=== PATIENT | male | born 1955 | race Caucasian/White ===

== ENCOUNTER → 2018-06-12 | Outpatient (REF) | payer MEDICARE ==
[2018-06-12 12:46] LABS: HEMATOCRIT 42.8 % (42.0-52.0); HEMOGLOBIN 14.8 g/dl (13.5-17.5); MEAN CORPUSCULAR HEMOGLOBIN 29.8 pg (27.0-33.0); MEAN CORPUSCULAR HGB CONC 34.6 g/dl (32.0-36.5); MEAN CORPUSCULAR VOLUME 86.3 fl (80.0-96.0); PLATELET COUNT, AUTOMATED 263 10^3/uL (150-450); RED BLOOD COUNT 4.96 10^6/uL (4.30-6.10); WHITE BLOOD COUNT 5.1 10^3/uL (4.0-10.0)
[2018-06-12 13:09] LABS: HEMOGLOBIN A1c 5.5 %
[2018-06-12 13:19] LABS: ALT/SGPT 32 U/L (12-78); BILIRUBIN,TOTAL 1.2 MG/DL (0.2-1.0); BLOOD UREA NITROGEN 14 MG/DL (7-18); CALCIUM LEVEL 8.3 MG/DL (8.8-10.2); CARBON DIOXIDE LEVEL 30 MEQ/L (21-32); CHLORIDE LEVEL 104 MEQ/L (98-107); CHOLESTEROL LEVEL 163 MG/DL (<200); CHOLESTEROL RISK RATIO 5.093 (<5); CREATININE FOR GFR 0.96 MG/DL (0.70-1.30); GLOMERULAR FILTRATION RATE > 60.0 (>49); GLUCOSE, FASTING 82 MG/DL (70-100); HDL CHOLESTEROL 32 MG/DL (>40); LDL CHOLESTEROL 110 MG/DL (<100); NON-HDL-C 131 MG/DL; POTASSIUM SERUM 4.3 MEQ/L (3.5-5.1); SODIUM LEVEL 141 MEQ/L (136-145); TOTAL 25(OH) VITAMIN D 22.6 NG/ML (30.0-100.0); TOTAL PROTEIN 6.6 GM/DL (6.4-8.2); TRIGLYCERIDES LEVEL 103 MG/DL (<150)
== END ==
LOC: M SFHCPLAZ 09:26
PROVIDERS: ATTEND Family Medicine
DX: R53.82 Chronic fatigue, unspecified (principal); Z13.1 Encounter for screening for diabetes mellitus; Z13.220 Encounter for screening for lipoid disorders; G47.33 Obstructive sleep apnea (adult) (pediatric)

== ENCOUNTER 2019-03-19 14:48 | Emergency (ER) | payer MEDICARE, OTHER ==
[~2019-03-19] VITALS: Ht 177.8 cm; Wt 88.1 kg
[2019-03-19] MEDS ORDERED: PRED10TA2 (14:57)
[2019-03-19] MEDS ORDERED: DOXY100C37 (14:57)
[2019-03-19] MEDS ORDERED: NS 1,000 ML IV ONE (16:30)
--- NOTE | 2019-03-19 17:09 | REP ---
Two-view chest: 03/19/2019. Indication: Dizziness. Comparison: None. Findings: There is no focal airspace consolidation. No pleural effusion or pneumothorax is present. The cardiomediastinal silhouette is unremarkable. There is mild elevation of the right hemidiaphragm. Poor inspiratory result is noted. Impression: No acute cardiopulmonary process. Electronically Signed by Jerrell Rodarte DO 03/19/2019 05:01 P
[2019-03-19 17:14] LABS: BASO % 0.4 % (0.0-1.0); EOS # 0.3 10^3/uL (0.0-0.5); HEMATOCRIT 48.4 % (42.0-52.0); HEMOGLOBIN 16.4 g/dl (13.5-17.5); LYMPH # 1.3 10^3/uL (1.5-5.0); LYMPH % 13.7 % (24.0-44.0); MEAN CORPUSCULAR HEMOGLOBIN 29.4 pg (27.0-33.0); MEAN CORPUSCULAR HGB CONC 33.9 g/dl (32.0-36.5); MEAN CORPUSCULAR VOLUME 86.9 fl (80.0-96.0); MONO # 0.9 10^3/uL (0.0-0.8); MONO % 9.3 % (0.0-5.0); NEUTROPHILS # 6.8 10^3/uL (1.5-8.5); NEUTROPHILS % 73.2 % (36.0-66.0); PLATELET COUNT, AUTOMATED 317 10^3/uL (150-450); RED BLOOD COUNT 5.57 10^6/uL (4.30-6.10); WHITE BLOOD COUNT 9.4 10^3/uL (4.0-10.0)
[2019-03-19 17:31] LABS: INFLUENZA A AMPLIFICATION NEGATIVE (NEGATIVE); INFLUENZA B AMPLIFICATION NEGATIVE (NEGATIVE)
[2019-03-19 17:33] LABS: ALBUMIN 3.7 GM/DL (3.2-5.2); ALT/SGPT 121 U/L (12-78); BILIRUBIN,TOTAL 1.4 MG/DL (0.2-1.0); BLOOD UREA NITROGEN 20 MG/DL (7-18); CALCIUM LEVEL 8.8 MG/DL (8.8-10.2); CARBON DIOXIDE LEVEL 26 MEQ/L (21-32); CHLORIDE LEVEL 105 MEQ/L (98-107); CK-MB VALUE MASS 1.6 NG/ML (<3.6); CPK CREATINE PHOSPHOKINASE 60 U/L (39-308); CREATININE FOR GFR 1.26 MG/DL (0.70-1.30); GLOMERULAR FILTRATION RATE > 60.0 (>49); GLUCOSE, FASTING 100 MG/DL (70-100); MB/CK RELATIVE INDEX 2.67 (< OR =4); SODIUM LEVEL 139 MEQ/L (136-145); TROPONIN I < 0.02 NG/ML (< 0.10)
[2019-03-19 18:43] LABS: MONO SCRN NEGATIVE (NEGATIVE)
--- NOTE | 2019-03-19 19:26 | REPVR ---
PROCEDURE INFORMATION: Exam: US Abdomen Limited, Right Upper Quadrant Exam date and time: 03/19/2019 7:13 PM Age: 63 years old Clinical history: Abnormal findings; Abnormal lab test; Other: Elevated bilirubin; Additional info: Elevated bilirubin levels, general malaise TECHNIQUE: Imaging protocol: Real-time ultrasound of the abdomen with image documentation. Examination was focused on the right upper quadrant. COMPARISON: No relevant prior studies available. FINDINGS: Liver: Diffuse increased echogenicity throughout the liver, consistent with fatty infiltration. No focal hepatic lesion or intrahepatic duct dilatation. Gallbladder: The gallbladder is contracted, but otherwise unremarkable. No gallstones or pericholecystic fluid are identified. Common bile duct: The common bile duct has a normal caliber, measuring 3.7 mm. Pancreas: The pancreas is inadequately visualized due to overlying bowel gas. Right kidney: There is a cyst, measuring 9 mm, within the right kidney upper pole. No right renal stone or hydronephrosis is identified. IMPRESSION: 1. Contracted gallbladder. 2. Fatty infiltration of the liver. 3. Inadequate visualization of the pancreas. COMMENT: Consistent with the [employer]'s Incidental Findings Committee Report (J Am Peterson Radiol 2010): Unless the patient's specific circumstances suggest otherwise, any liver lesion 0.5 cm or less, any cystic kidney lesion less than 1.0 cm, and/or any adrenal lesion 1.0 cm or less not otherwise characterized in this report as possessing suspicious or indeterminate imaging features is/are highly likely to be benign and do not require follow-up imaging or biopsy. Electronically signed by: Bill Wolfe On 03/19/2019 19:26:04 PM
--- NOTE | 2019-03-19 20:21 | ECGEPIP ---
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
[2019-03-19 20:51] VITALS: BP 155/88
[2019-03-22 10:47] LABS: HEPATITIS B SURFACE ANTIGEN NEGATIVE (NEGATIVE)
[2019-03-22 11:15] LABS: HEPATITIS B CORE ANTIBODY IGM NEGATIVE (NEGATIVE); HEPATITIS C VIRUS ABY INDEX 0.1 INDEX (<0.8)
[2019-03-22 11:17] LABS: HEPATITIS A ANTIBODY IGM NEGATIVE (NEGATIVE)
[2019-03-23 00:06] LABS: Lyme Disease IgG/IgM Antibodie <0.91 ISR (0.00-0.90); Lyme Disease IgM Ab Quantitati <0.80 index (0.00-0.79)
== END 2019-03-19 21:17 | disposition home or self-care (01) ==
LOC: M ED 14:48
DX: E86.0 Dehydration (principal); R74.0 Nonspecific elevation of levels of transaminase and lactic acid dehydrogenase [LDH]; R79.89 Other specified abnormal findings of blood chemistry; Z88.0 Allergy status to penicillin

== ENCOUNTER → 2019-03-25 | Outpatient (REF) | payer OTHER ==
[~2019-03-25] MED LIST: DOXY100C37; PRED10TA2
== END ==
LOC: M LAB REF 12:50
PROVIDERS: ATTEND Physician Assistant
DX: R19.7 Diarrhea, unspecified (principal)

== ENCOUNTER → 2019-04-05 | Outpatient (CLI) | payer OTHER ==
[2019-04-05 13:10] LABS: ALBUMIN 3.8 GM/DL (3.2-5.2); ALT/SGPT 35 U/L (12-78); BILIRUBIN,TOTAL 1.2 MG/DL (0.2-1.0); BLOOD UREA NITROGEN 13 MG/DL (7-18); CALCIUM LEVEL 8.7 MG/DL (8.8-10.2); CARBON DIOXIDE LEVEL 28 MEQ/L (21-32); CHLORIDE LEVEL 107 MEQ/L (98-107); CREATININE FOR GFR 1.07 MG/DL (0.70-1.30); GLOMERULAR FILTRATION RATE > 60.0 (>49); GLUCOSE, FASTING 90 MG/DL (70-100); POTASSIUM SERUM 4.3 MEQ/L (3.5-5.1); SODIUM LEVEL 142 MEQ/L (136-145); TOTAL PROTEIN 6.8 GM/DL (6.4-8.2)
== END ==
LOC: M LAB 11:32
PROVIDERS: ATTEND Nurse Practitioner Family
DX: R94.5 Abnormal results of liver function studies (principal)